=== PATIENT | female | born 1985 | race Caucasian/White ===

== ENCOUNTER → 2024-11-22 08:00 | Outpatient (CLI) | payer OTHER, SELFPAY ==
--- NOTE | 2024-11-22 08:03 | DI.NM.S_ITS ---
PROCEDURE: NM EXERCISE TREADMILL NON NUC COMPARISON: None. INDICATIONS: MTF capability FINDINGS: Patient exercised per the standard [facility] protocol. Total exercise time was 8 minutes and 57 seconds. Test was terminated secondary to fatigue. Maximal heart rate obtained is 139 bpm which is 76% of max predicted heart rate. Maximum blood pressure was 159/[place] [id number]. JULI of +2%. 10.1 METS. No ischemic changes noted. No arrhythmias present. No chest pains voiced. Blunted heart rate and normal blood pressure response to exercise. IMPRESSION: 1. Nondiagnostic exercise treadmill stress test for ischemia due to inability to reach target heart rate. 2. Possible chronotropic incompetency. Dictated by: Trever Harris M.D. on 11/22/2024 at 17:08 Approved by: Trever Harris M.D. on 11/22/2024 at 17:10
== END ==
PROVIDERS: PCP Family Medicine; Referring Provider Family Medicine; Visit Provider Family Medicine
DX: R07.89 Other chest pain (principal)
CPT/HCPCS: 93016; 93017; 93018